=== PATIENT | female | born 1990 | race Caucasian/White ===

== ENCOUNTER 2019-01-18 23:40 | Emergency (ER) | payer OTHER ==
--- NOTE | 2019-01-19 00:21 | ED Physician Documentation ---
PD HPI FEMALE - Stated complaint Stated Complaint: FEM - Chief complaint Chief Complaint: General - History obtained from History obtained from: Patient - History of Present Illness Timing - onset: How many days ago (2) Timing - duration: Days (2) Timing - details: Gradual onset, Still present, Constant (She has had pretty consistent bleeding of the last 1/2 to 2 days with using approximately 2 ultra absorbent pads hourly with red blood and clots. She denies any discharge. She denies any cramping or pains nor any lightheadedness. She has a history of irregular periods occurring every 2 to 3 months and are a little bit heavier when they do occur. However she would only use may be 6-10 pads per day for a few days with those. This is unusual for her.) Associated symptoms: Vaginal bleeding. No: Fever, Back pain, Pelvic pain, Vaginal discharge, Genital sore/lesion, Dysuria Contributing factors: No: , control, Exposed to STD Similar symptoms before: Has not had sx before Recently seen: Not recently seen Review of Systems Constitutional: denies: Fever, Myalgias, Fatigue Nose: denies: Rhinorrhea / runny nose, Congestion Throat: denies: Sore throat Respiratory: denies: Cough GI: denies: Abdominal Pain, Nausea, Vomiting, Diarrhea : reports: Vaginal bleeding (heavy for 2 days), Irregular menses. denies: Discharge Neurologic: denies: Generalized weakness, Near syncope Endocrine: reports: Weight gain. denies: Weight loss, Easy bruising / bleeding PD PAST MEDICAL HISTORY - Past Medical History Past Medical History: No - Past Surgical History Past Surgical History: No - Present Medications Home Medications: Ambulatory Orders Medication Instructions Recorded Confirmed Methylergonovine Maleate 0.2 mg PO TID #10 tablet 01/19/19 [Methergine] Norethindrone-E.estradiol-Iron 1 each PO DAILY #1 packet 01/19/19 [Loestrin Fe 1.5-30 Tablet] Ondansetron Odt [Zofran] 4 mg TL Q6H PRN #10 tablet 01/19/19 - Allergies Allergies/Adverse Reactions: Allergies Allergy/AdvReac Type Severity Reaction Status Date / Time No Known Drug Allergies Allergy Verified 01/18/19 23:45 - Living Situation Living Situation: reports: With spouse/s.o. Living Arrangement: reports: At home, Other (recently moved to [facility] from [place]) - Social History Does the pt smoke?: No Smoking Status: Never smoker Does the pt drink ETOH?: Yes Does the pt have substance abuse?: No - Immunizations Immunizations are current?: Yes PD ED PE NORMAL - Vitals Vital signs reviewed: Yes - General General: Alert and oriented X 3, No acute distress, Well developed/nourished - Neck Neck: Supple, no meningeal sign, No adenopathy, Thyroid normal - Cardiac Cardiac: RRR, No murmur - Respiratory Respiratory: Clear bilaterally - Abdomen Abdomen: Normal bowel sounds, Soft, Non tender, Non distended - Female Female : Deferred - Back Back: No CVA TTP - Derm Derm: Normal color, Warm and dry - Neuro Neuro: Alert and oriented X 3, No motor deficit, Normal speech Results - Vitals Vitals: Vital Signs - 24 hr 01/18/19 01/19/19 01/19/19 23:45 00:14 02:01 Temperature 36.6 C 36.4 C L Heart Rate 75 72 65 Respiratory 20 16 Rate Blood Pressure 150/97 H 146/90 H O2 Saturation 98 98 01/19/19 03:43 Temperature 37.1 C Heart Rate 72 Respiratory 16 Rate Blood Pressure 138/74 H O2 Saturation 99 Oxygen O2 Source Room air - Labs Labs: Laboratory Tests 01/19/19 01/19/19 01/19/19 00:01 00:01 00:01 WBC 10.9 H RBC 3.47 L Hgb 9.7 L Hct 30.5 L MCV 87.9 MCH 28.0 MCHC 31.8 L RDW 13.8 Plt Count 378 MPV 9.6 Neut # (Auto) 6.7 H Lymph # (Auto) 3.0 Hardin # (Auto) 0.7 Eos # (Auto) 0.3 Baso # (Auto) 0.1 Absolute Nucleated RBC 0.00 Nucleated RBC % 0.0 Sodium 137 Potassium 3.9 Chloride 102 Carbon Dioxide 25 Anion Gap 10.0 BUN 20 Creatinine 0.7 Estimated GFR (MDRD) 100 Glucose 110 H Calcium 8.7 Total Bilirubin 0.5 AST 22 ALT 38 Alkaline Phosphatase 75 Total Protein 6.8 Albumin 3.5 Globulin 3.3 Albumin/Globulin Ratio 1.1 Lipase 38 TSH 1.95 Urine Color Urine Clarity Urine pH Ur Specific [place] Urine Protein Urine Glucose (UA) Urine Ketones Urine Occult Blood Urine Nitrite Urine Bilirubin Urine Urobilinogen Ur Leukocyte Esterase Urine RBC Urine WBC Ur Squamous Epith Cells Urine Bacteria Ur Microscopic Review Urine Culture Comments Urine HCG, Qual 01/19/19 00:05 WBC RBC Hgb Hct MCV MCH MCHC RDW Plt Count MPV Neut # (Auto) Lymph # (Auto) Hardin # (Auto) Eos # (Auto) Baso # (Auto) Absolute Nucleated RBC Nucleated RBC % Sodium Potassium Chloride Carbon Dioxide Anion Gap BUN Creatinine Estimated GFR (MDRD) Glucose Calcium Total Bilirubin AST ALT Alkaline Phosphatase Total Protein Albumin Globulin Albumin/Globulin Ratio Lipase TSH Urine Color YELLOW Urine Clarity CLEAR Urine pH 6.0 Ur Specific [place] <=1.005 Urine Protein NEGATIVE Urine Glucose (UA) NEGATIVE Urine Ketones NEGATIVE Urine Occult Blood SMALL H Urine Nitrite NEGATIVE Urine Bilirubin NEGATIVE Urine Urobilinogen 0.2 (NORMAL) Ur Leukocyte Esterase NEGATIVE Urine RBC 0-5 Urine WBC 0-3 Ur Squamous Epith Cells NONE SEEN Urine Bacteria None Seen Ur Microscopic Review INDICATED Urine Culture Comments NOT INDICATED Urine HCG, Qual NEGATIVE - Rads (name of study) pelvic U/S Radiology: Prelim report reviewed (thickened endometrium. No acute lesions. ), See rad report PD MEDICAL DECISION MAKING - ED course Complexity details: re-evaluated patient (somewhat lessened bleeding, but still using pads the past couple hours here. Vitals still good. Timeframe for improvement with the neds given is over several hours (4-10). So she is clinically stable here and without pains. Can discharge her with med see if bleeding decreases /stops over today/tomorrow), considered differential (sounds like significant bleeding over 2 days but with good vitals and not symptomatic. CBC is low with Hgb 9.7. Will give IV fluids and meds. ), d/w patient Departure - Departure Disposition: 01 Home, Self Care Clinical Impression: Dysfunctional uterine bleeding, Anemia due to acute blood loss Condition: Stable Record reviewed to determine appropriate education?: Yes Instructions: ED Bleed Irregular Vaginal Follow-Up: [facility] [Provider Group] [facility] [Provider Group] Prescriptions: Methylergonovine Maleate [Methergine] 0.2 mg PO TID #10 tablet Norethindrone-E.estradiol-Iron [Loestrin Fe 1.5-30 Tablet] 1 each PO DAILY #1 packet Ondansetron Odt [Zofran] 4 mg TL Q6H PRN #10 tablet PRN Reason: Nausea / Vomiting Comments: Stay well-hydrated. Tylenol if needed for pains. Ondansetron if needed for nausea. Take the oral contraceptives from the typically daily use packet and take 3 of them daily the first 1 or 2 days and then 2 daily for the next few days until the bleeding is all stopped. Finish out the packet once daily tablet as usual. He then could do a second oral contraceptive packet once daily for the whole month to try to reestablish normal hormonal cycle. Use Methergine 2 to 3 times daily for the next few days to decrease the blood vessels in the uterus. You can discontinue it as the bleeding stops. Follow-up with gynecology in the next several days, call tomorrow for an appointment. I would anticipate the bleeding tapering down through later this morning and today and stopping over the next couple of days. Recheck if it is not tapering well or if you have symptoms of significant blood loss to include shortness of breath, lightheadedness, general weakness or other concerns. Discharge Date/Time: 01/19/19 03:44
[2019-01-19 00:25] LABS: BILIRUBIN,URINE NEGATIVE (NEGATIVE); GLUCOSE, URINE (UA) NEGATIVE (NEGATIVE); KETONES,URINE (UA) NEGATIVE (NEGATIVE); LEUKOCYTE ESTERASE, URINE NEGATIVE (NEGATIVE); NITRITE,URINE NEGATIVE (NEGATIVE); OCCULT BLOOD,URINE SMALL (NEGATIVE); PROTEIN,URINE NEGATIVE (NEGATIVE); UROBILINOGEN,URINE 0.2 (NORMAL) E.U./dL (NORMAL)
[2019-01-19 00:26] LABS: BASOPHILS # (AUTO) 0.1 10^3/uL (0.0-0.1); BASOPHILS % (AUTO) 0.8 %; EOSINOPHILS # (AUTO) 0.3 10^3/uL (0.0-0.7); EOSINOPHILS % (AUTO) 2.7 %; HGB - HEMOGLOBIN 9.7 g/dL (12.0-16.0); LYMPHOCYTES % (AUTO) 27.8 %; MEAN CORPUSCULAR HGB CONC 31.8 g/dL (32.0-36.0); MEAN CORPUSCULAR VOLUME 87.9 fL (81.0-99.0); MEAN PLATELET VOLUME 9.6 fL (7.9-10.8); MONOCYTES # (AUTO) 0.7 10^3/uL (0.0-1.0); MONOCYTES % (AUTO) 6.6 %; NEUTROPHILS # (AUTO) 6.7 10^3/uL (1.5-6.6); NEUTROPHILS % (AUTO) 61.3 %; PLT - PLATELET COUNT 378 10^3/uL (130-450); RED BLOOD COUNT 3.47 10^6/uL (4.20-5.40); RED CELL DISTRIBUTION WIDTH 13.8 % (12.0-15.0); WHITE BLOOD COUNT 10.9 x10^3/uL (4.8-10.8)
[2019-01-19 00:26] LABS: CLARITY,URINE CLEAR (CLEAR); HCG UR QUAL NEGATIVE
[2019-01-19 00:34] LABS: ALBUMIN 3.5 g/dL (3.2-5.5); ALBUMIN/GLOBULIN RATIO 1.1 (1.0-2.2); BILIRUBIN,TOTAL 0.5 mg/dL (0.2-1.0); CALCIUM 8.7 mg/dL (8.5-10.3); CREATININE 0.7 mg/dL (0.4-1.0); TOTAL PROTEIN 6.8 g/dL (6.7-8.2)
[2019-01-19 00:35] LABS: BACTERIA,URINE None Seen /HPF (None Seen); RBC,URINE 0-5 /HPF (0-5); SQUAMOUS EPITHELIAL CELL,UR NONE SEEN (<= Few)
[2019-01-19] MEDS ORDERED: SODIUM CHLORIDE 0.9% 1,000 ML IV ONE (00:52)
[2019-01-19] MEDS ORDERED: METHYLERGONOVINE 0.2 MG/ML AMP IM STA (00:52)
[2019-01-19] MEDS ORDERED: TRANEXAMIC ACID 1,000 MG in SODIUM CHLORIDE 0.9% 100ML 100 ML IV STA (00:52)
[2019-01-19] MEDS ORDERED: NORGESTREL-ETHINYL ESTRADIOL TABLET PO STA (00:59)
--- NOTE | 2019-01-19 03:08 | Ultrasound Report ---
Reason: significant vaginal bleeding Procedure Date: 01/19/2019 Accession Number: [id number] / [id number] Procedure: US - Pelvic w/Transvag+Doppler Ltd CPT Code: FULL RESULT: EXAM: PELVIC ULTRASOUND WITH LIMITED DOPPLERS CLINICAL HISTORY: Significant vaginal bleeding. COMPARISON: None. TECHNIQUE: Realtime transabdominal imaging performed to identify the uterus and adnexa and as an overview of other pelvic structures, followed by transvaginal imaging for better assessment of the endometrium and adnexa, with static image documentation. Pulsed Doppler and color Doppler performed. FINDINGS: Uterus: 8.4 x 4.2 x 5.8 cm, volume 108 cc. Anteverted position. Normal overall size and echotexture. Masses: None. Endometrium: 14-17 mm. Thickened and heterogeneous. Small cystic structures in the endometrium measuring up to 6 x 3 x 5 mm. Endometrial vascularity is noted. Cervix: Nabothian cysts. Right Ovary: 3.6 x 1.2 x 1.8 cm, volume 4 cc. Normal echotexture. Arterial and venous blood flow are present. Left Ovary: 3.0 x 1.7 x 2.2 cm, volume 5.5 cc. Normal echotexture. Arterial and venous blood flow are present. Free Fluid: None. Other: None. IMPRESSION: 1. Thickened heterogeneous endometrium measuring up to 17 mm, with small cystic foci measuring up to 6 x 3 x 5 mm. 2. There is some endometrial vascularity of uncertain significance. Recommend PATIENT REGISTRATION REPRESENTATIVE consultation. 3. Ovaries appear normal. Arterial and venous blood flow are present to the ovaries bilaterally. RADIA
[2019-01-19 03:44] VITALS: BP 138/74
== END 2019-01-19 03:44 | disposition home or self-care (01) ==
LOC: ED 23:40
DX: N93.8 Other specified abnormal uterine and vaginal bleeding (principal); D62 Acute posthemorrhagic anemia
CPT/HCPCS: 36415; 76830; 76856; 81001; 81025; 83690; 93976; 96361; 96372; 96374; 99283; S4993; 80053; 81003; 84443; 85025; 87086